=== PATIENT | male | born 1970 | race Two or more races ===

== ENCOUNTER 2019-07-09 22:36 | Emergency (ER) | payer MEDICAID ==
[~2019-07-09] VITALS: Ht 175.3 cm; Wt 82.0 kg
[2019-07-09] MEDS ORDERED: HYDROCODONE/ACETAMINOPHEN 10/325MG TABLET PO ONE (23:15)
[2019-07-10 01:07] VITALS: BP 107/70
== END 2019-07-10 01:12 | disposition home or self-care (01) ==
LOC: ER 22:36
DX: S00.81XA Abrasion of other part of head, initial encounter (principal); W06.XXXA Fall from bed, initial encounter; Y93.89 Activity, other specified; Y92.89 Other specified places as the place of occurrence of the external cause; Y99.8 Other external cause status
CPT/HCPCS: 73030; 99283